=== PATIENT | female | born 1995 ===

== ENCOUNTER 2018-09-18 20:57 | Emergency (ER) | payer SELFPAY ==
[2018-09-18 23:39] LABS: ABSOLUTE BASOPHILS # (AUTO) 0.1 10^3/uL (0.0-0.2); ABSOLUTE EOSINOPHILS # (AUTO) 0.4 10^3/uL (0.0-0.6); ABSOLUTE LYMPHOCYTES (AUTO) 3.3 10^3/uL (0.5-4.7); ABSOLUTE NEUT (AUTO) 7.7 10^3/uL (1.7-8.2); BASOPHILS % (AUTO) 0.7 % (0-2); HEMATOCRIT 38.1 % (36.0-47.0); HEMOGLOBIN 12.5 g/dL (12.0-15.5); LYMPHOCYTES % (AUTO) 26.7 % (13-45); MEAN CORPUSCULAR HEMOGLOBIN 27.9 pg (27.0-33.4); MEAN CORPUSCULAR HGB CONC 32.8 g/dL (32.0-36.0); MEAN CORPUSCULAR VOLUME 85 fl (80-97); MONOCYTES % (AUTO) 7.9 % (3-13); PLATELET COUNT 293 10^3/uL (150-450); RED BLOOD COUNT 4.47 10^6/uL (3.72-5.28); RED CELL DISTRIBUTION WIDTH 15.1 % (11.5-14.0); SEGMENTED NEUTROPHILS % (AUTO) 61.7 % (42-78); TOTAL CELLS COUNTED % (AUTO) 100 %; WHITE BLOOD COUNT 12.5 10^3/uL (4.0-10.5)
--- NOTE | 2018-09-19 00:04 | ER Document Report ---
ED General <RIKA PAPPAS - Last Filed: 09/19/18 00:05> - General TRAVEL OUTSIDE OF THE [place] IN LAST 30 DAYS: No <KEILY JUSTIN - Last Filed: 09/19/18 06:38> - General Chief Complaint: Abdominal Pain Stated Complaint: ABDOMINAL PAIN Time Seen by Provider: 09/18/18 22:57 Notes: Patient is a pleasant 23-year-old female who presents with abnormal vaginal bleeding and some lower abdominal cramping that radiates to the back. Patient has been ongoing for several days. She said it. Is been intermittent now for over a week. She denies any fevers. She denies any vomiting. She denies abnormal vaginal discharge. She denies any dysuria. She says that her pain actually gets a bit better after she is urinated she feels some relief. She is not on control. She has not recently been on control. She does not think she be but she is sexually active. She is sexually monogamous. She has no other complaints at this time. (KEILY JUSTIN) - Related Data Allergies/Adverse Reactions: No Known Allergies Allergy (Unverified 09/18/18 23:23) Past Medical History - Social History Smoking Status: Never Smoker Chew tobacco use (# tins/day): No Frequency of alcohol use: None Drug Abuse: None Family History: Reviewed & Not Pertinent Patient has suicidal ideation: No Patient has homicidal ideation: No Renal/ Medical History: Denies: Hx Peritoneal Dialysis <KEILY JUSTIN - Last Filed: 09/19/18 06:38> Review of Systems <KEILY JUSTIN - Last Filed: 09/19/18 06:38> - Review of Systems Notes: My Normal Review Basic REVIEW OF SYSTEMS: CONSTITUTIONAL : Denies fever, chills, or sweats. Denies recent illness. EENT: Denies eye, ear, throat, or mouth pain or symptoms. Denies nasal or sinus congestion. CARDIOVASCULAR: Denies chest pain. RESPIRATORY: Denies cough, cold, or chest congestion. Denies shortness of br eath, difficulty breathing, or wheezing. GASTROINTESTINAL: Lower abdominal pain. Denies nausea, vomiting, or diarrhea. GENITOURINARY: Denies difficulty urinating, painful urination, burning, freque ncy, or blood in urine. FEMALE GENITOURINARY: Abnormal vaginal bleeding. SKIN: Denies rash or skin lesions. NEUROLOGICAL: Denies altered mental status or loss of consciousness. Denies headache. Denies weakness or paralysis or loss of use of either side. Denies problems with gait or speech. Denies sensory or motor loss. ALL OTHER SYSTEMS REVIEWED AND NEGATIVE. (KEILY JUSTIN) Physical Exam <KEILY JUSTIN - Last Filed: 09/19/18 06:38> - Vital signs Vitals: Temp Pulse Resp BP Pulse Ox 97.8 F 55 L 16 124/74 99 09/18/18 21:03 09/18/18 21:03 09/18/18 21:03 09/18/18 21:03 09/18/18 21:03 - Notes Notes: General Appearance: Well nourished, alert, cooperative, no acute distress, mild obvious discomfort. Vitals: reviewed, See vital signs table. Eyes: PERRL, EOMI, Conjuctiva clear Mouth: No decreasd moisture Lungs: No wheezing, No rales, No rhonci, No accessory muscle use, good air exchange bilaterally. Heart: Normal rate, Regular rythm, No murmur, no rub Abdomen: Normal BS, soft, No rigidity, suprapubic abdominal tenderness to palpation., No guarding, no rebound, no abdominal masses, no organomegaly Exam: Please refer to note placed by nurse practitioner, Rika Pappas, for pelvic exam. Extremities: strength 5/5 in all extremities, good pulses in all extremities, no swelling or tenderness in the extremities, no edema. Skin: warm, dry, appropriate color, no rash Neuro: speech clear, oriented x 3, normal affect, responds appropriately to questions. (KEILY JUSTIN) Course - Laboratory Result Diagrams: 09/18/18 23:26 <RIKA PAPPAS - Last Filed: 09/19/18 00:05> - Laboratory Result Diagrams: 09/18/18 23:26 <KEILY JUSTIN - Last Filed: 09/19/18 06:38> - Re-evaluation Re-evalutation: 09/19/18 00:05 Patient requested a female provider to perform her pelvic exam. I performed her pelvic exam with ARACELI Huber at bedside. She had one small clot near her cervix, which was removed, but no copious amounts or gushes of blood were noted. Her cervix was unremarkable. These findings were discussed with Dr. Justin. (RIKA PAPPAS) 09/19/18 06:37 Patient's pelvic exam by Rika pappas showed small amount of menstrual bleeding. She denied any heavy bleeding. She done any clots. There is no abnormal discharge on exam per Rika Pappas. On exam patient's abdomen is benign and soft. Her pain was improved with Toradol. test is neg ative. Ultrasound does not show any concerning findings. At this time for the patient states be discharged home. I did talk to patient length about regular menstrual periods. She did start a new workout plan and this could be contributing to the irregularity in her menstrual periods. I encouraged her to return to the ER immediately if she has fevers, severe pain, or heavy bleeding is causing her lightheadedness or dizziness. Patient agrees with plan will be discharged home. Dictation of this chart was performed using voice recognition software; therefore, there may be some unintended grammatical errors. (KEILY JUSTIN) - Vital Signs Vital signs: Temp Pulse Resp BP Pulse Ox 99.0 F 48 L 16 108/62 100 09/19/18 02:20 09/19/18 02:20 09/19/18 02:20 09/19/18 02:20 09/19/18 02:20 - Laboratory Laboratory results interpreted by me: 09/18/18 09/18/18 23:26 23:50 WBC 12.5 H RDW 15.1 H Urine Blood LARGE H Ur Leukocyte Esterase SMALL H Discharge <RIKA PAPPAS - Last Filed: 09/19/18 00:05> <KEILY JUSTIN - Last Filed: 09/19/18 06:38> - Discharge Clinical Impression: Abnormal vaginal bleeding Condition: Good Disposition: HOME, SELF-CARE Additional Instructions: Your ultrasound did not show any anatomical abnormalities. You have irregular vaginal bleeding. This usually resolves with time. Please have a low threshold to return to the ER or a doctor immediately if you should have lightheadedness, dizziness, shortness of breath, or feel that your bleeding is very heavy. Please follow-up with your plastic welder if you are still having bleeding after 2 weeks. Please take the Toradol for pain. Do not take other NSAID medicaitons such as Aspirin, Motrin, Ibuprofen, Aleve, or Advil when taking Toradol. It is okay to take Tylenol. Prescriptions: Ketorolac Tromethamine [Toradol 10 mg Tablet] 10 mg PO Q8HP PRN #14 tablet PRN Reason:
[2018-09-19] MEDS ORDERED: KETOROLAC TROMETHAMINE INJ/PF 30 MG/1 ML SDV IM ONE (00:21)
[2018-09-19 00:44] LABS: APPEARANCE,URINE CLOUDY; BILIRUBIN,URINE NEGATIVE (NEGATIVE); COLOR,URINE YELLOW; GLUCOSE, URINE NEGATIVE (NEGATIVE); KETONES,URINE NEGATIVE (NEGATIVE); LEUKOCYTE ESTERASE,URINE SMALL (NEGATIVE); NITRITE,URINE NEGATIVE (NEGATIVE); PROTEIN,URINE NEGATIVE (NEGATIVE); URINE SPECIFIC GRAVITY 1.024; UROBILINOGEN,URINE NEGATIVE mg/dL (<2.0)
--- NOTE | 2018-09-19 01:20 | RADIOLOGY REPORT (SQ) ---
US PELVIS HISTORY: Pelvic pain. Abnormal vaginal bleeding. COMPARISON: None. TECHNIQUE: Grayscale, color Doppler, and spectral Doppler ultrasound images of the pelvis were obtained. FINDINGS: The uterus is retroverted and measures 8.4 x 5.4 x 4.8 cm. The endometrium measures 8 mm in thickness. The cervix is closed and measures 3 cm in length. The right ovary measures 2.1 x 1.3 x 1.4 cm. The left ovary measures 3.1 x 1.8 x 1.5 cm. Both ovaries contain normal follicles and normal color Doppler blood flow. No free fluid is seen in the pelvis. IMPRESSION: Unremarkable study.
[2018-09-19 02:31] VITALS: BP 108/62
== END 2018-09-19 02:31 | disposition home or self-care (01) ==
LOC: ER 20:57
DX: N93.9 Abnormal uterine and vaginal bleeding, unspecified (principal); R10.9 Unspecified abdominal pain; R10.30 Lower abdominal pain, unspecified; M54.9 Dorsalgia, unspecified
CPT/HCPCS: 99284; 96372; 36415; 87086; 85025; 81025; 81001; 76830; 93976; J1885